=== PATIENT | female | born 1985 | race American Indian/Alaskan Native ===

== ENCOUNTER 2017-06-15 14:48 | Emergency (ER) | payer MEDICAID ==
[2017-06-15] MEDS ORDERED: NORCO 5/325 PO ONE ×2 (17:03→18:30)
[2017-06-15] MEDS ORDERED: FLEXERIL PO ONE (17:03)
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
[2017-06-15 18:47] LABS: Bilirubin,Urine NEG (Negative); Blood,Urine NEG (Negative); Ketones,Urine NEG (Negative); Leukocyte Esterase,Urine NEG (Negative); Mucus,Urine FEW /HPF; Nitrite,Urine NEG (Negative); Protein,Urine <15 mg/dL mg/dL (Negative); WBC,Urine < 1.0 /HPF (0.0-6.0)
[2017-06-15 19:04] VITALS: BP 130/70
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
== END 2017-06-15 19:03 | disposition home or self-care (01) ==
LOC: ED 14:48
DX: M54.5 Low back pain (principal); M25.561 Pain in right knee; V87.7XXA Person injured in collision between other specified motor vehicles (traffic), initial encounter; Y93.89 Activity, other specified; Y99.9 Unspecified external cause status; Y92.410 Unspecified street and highway as the place of occurrence of the external cause
CPT/HCPCS: 72100; 81001; 81025

== ENCOUNTER 2018-05-21 23:38 | Emergency (ER) | payer MEDICAID ==
[2018-05-22 00:27] LABS: Basophils % (Auto) 0.3 % (0.0-1.8); Eosinophils % (Auto) 0.5 % (0.0-4.3); Hematocrit 34.2 % (30.3-42.9); Hemoglobin 11.9 gm/dl (10.1-14.3); Lymphocytes # (Auto) 1.3 K/mm3 (1.2-5.4); Lymphocytes % (Auto) 29.2 % (13.4-35.0); Mean Corpuscular HGB Conc 35 % (30-34); Mean Corpuscular Hemoglobin 29 pg (28-32); Mean Corpuscular Volume 84 fl (79-97); Monocytes # (Auto) 0.4 K/mm3 (0.0-0.8); Monocytes % (Auto) 9.4 % (0.0-7.3); Platelet Count 199 K/mm3 (140-440); Red Blood Count 4.05 M/mm3 (3.65-5.03); Red Cell Distribution Width 14.8 % (13.2-15.2)
[2018-05-22 00:42] LABS: BUN/Creatinine Ratio 12; Blood Urea Nitrogen 7 mg/dL (7-17); Calcium 8.7 mg/dL (8.4-10.2); Hemolysis Index 5
[2018-05-22] MEDS ORDERED: ANTIVERT PO ONE (01:10)
--- NOTE | 2018-05-22 01:13 | Emergency Department Report ---
ED Dizziness HPI - General Chief Complaint: Headache Stated Complaint: WEAKNESS, DIZZINESS, NAUSEA & VOMITING Time Seen by Provider: 05/22/18 01:00 Source: patient Mode of arrival: Ambulatory Limitations: No Limitations - History of Present Illness Initial Comments: Patient is 32 years old female with no significant past medical history. Patient presented to the ER complaining of dizziness and spinning of the room. Patient stated that her symptoms is worse when she change her position. She said she never had any symptoms like this before. Patient denied any weakness, numbness or tingling sensation. No neck pain or fever. MD Complaint: dizziness -: Sudden Description: sense of movement, "room spinning" History of Same: No Severity: moderate Improves With: remaining still Associated Symptoms: denies other symptoms - Related Data Previous Rx's Medication Instructions Recorded Last Taken Type Cyclobenzaprine [Flexeril] 10 mg PO TID PRN #10 tablet 06/15/17 Unknown Rx methylPREDNISolone [Medrol] 4 mg PO DAILY #1 tab.ds.pk 06/15/17 Unknown Rx traMADol [Ultram] 50 mg PO Q6HR PRN #10 tablet 06/15/17 Unknown Rx Allergies Allergy/AdvReac Type Severity Reaction Status Date / Time No Known Allergies Allergy Verified 06/15/17 14:52 ED Review of Systems ROS: Stated complaint: WEAKNESS, DIZZINESS, NAUSEA & VOMITING Other details as noted in HPI Comment: All other systems reviewed and negative Constitutional: denies: chills, fever Respiratory: denies: cough, orthopnea, shortness of breath, SOB with exertion Gastrointestinal: denies: abdominal pain, nausea, vomiting, diarrhea Genitourinary: denies: urgency, dysuria, frequency, hematuria Skin: denies: rash Neurological: denies: headache, weakness ED Past Medical Hx - Past Medical History Previous Medical History?: No - Surgical History Past Surgical History?: Yes Additional Surgical History: Csection - Social History Smoking Status: Never Smoker - Medications Home Medications: Home Medications Medication Instructions Recorded Confirmed Last Taken Type Cyclobenzaprine [Flexeril] 10 mg PO TID PRN #10 tablet 06/15/17 Unknown Rx methylPREDNISolone [Medrol] 4 mg PO DAILY #1 tab.ds.pk 06/15/17 Unknown Rx traMADol [Ultram] 50 mg PO Q6HR PRN #10 tablet 06/15/17 Unknown Rx ED Physical Exam - General Limitations: No Limitations General appearance: alert, in no apparent distress - Head Head exam: Present: atraumatic, normocephalic, normal inspection - Eye Eye exam: Present: normal appearance, PERRL - ENT ENT exam: Present: normal exam, normal orophraynx, mucous membranes moist - Neck Neck exam: Present: normal inspection, full ROM. Absent: tenderness, meningismus, lymphadenopathy - Respiratory Respiratory exam: Present: normal lung sounds bilaterally - Cardiovascular Cardiovascular Exam: Present: regular rate, normal rhythm, normal heart sounds - GI/Abdominal GI/Abdominal exam: Present: soft, normal bowel sounds. Absent: distended, tenderness, guarding, rebound, rigid, organomegaly, mass, bruit, pulsatile mass , hernia - Extremities Exam Extremities exam: Present: normal inspection, full ROM, normal capillary refill - Back Exam Back exam: Present: normal inspection, full ROM. Absent: CVA tenderness (L) - Neurological Exam Neurological exam: Present: alert, oriented X3, CN II-XII intact, normal gait, reflexes normal - Skin Skin exam: Present: warm, intact, normal color ED Course Vital Signs 05/21/18 05/21/18 05/22/18 23:43 23:57 00:59 Temperature 98.2 F 98.2 F 98.2 F Pulse Rate 77 75 81 Respiratory 18 18 12 Rate Blood Pressure 107/70 107/70 Blood Pressure 125/79 [Left] O2 Sat by Pulse 97 98 99 Oximetry 05/22/18 01:00 Temperature Pulse Rate 80 Respiratory 17 Rate Blood Pressure 124/79 Blood Pressure [Left] O2 Sat by Pulse 100 Oximetry ED Medical Decision Making - Lab Data Result diagrams: 05/22/18 00:10 05/22/18 00:10 - EKG Data -: EKG Interpreted by Md EKG shows normal: sinus rhythm Rate: normal - EKG Data Interpretation: no acute changes - Radiology Data Radiology results: report reviewed Referring Physician: TONG PRADO Patient Name: JASIEL JEAN Date of : 1985 Sex: Female Report Date: 2018-05-22 Report Status: Finalized Findings [facility] [address] [place] [address] Cat Scan Report Signed Patient: JASIEL JEAN MR#: [id number] : 1985 Acct:[id number] Age/Sex: 32 / F ADM Date: 05/21/18 Loc: ED Attending Dr: Ordering Physician: TONG PRADO Date of Service: 05/22/18 Procedure(s): CT head/brain wo con Accession Number(s): [id number] cc: TONG PRADO FINAL REPORT EXAM: CT HEAD/BRAIN WO CON HISTORY: Acute Headache TECHNIQUE: Routine axial imaging was obtained of the brain without IV contrast. FINDINGS: The ventricular system is appropriate in size and is symmetric. There is no evidence of acute stroke or hemorrhage. There are no extra-axial fluid collections. The visualized sinuses are clear. The mastoid air cells are well pneumatized. IMPRESSION: No acute intracranial process. Transcribed By: RB Dictated By: SHIRLENE HAMILTON MD Electronically Authenticated By: SHIRLENE HAMILTON MD Signed Date/Time: 05/22/18135 DD/ 5 TD/TT: 05/22/18135 Critical care attestation.: If time is entered above; I have spent that time in minutes in the direct care of this critically ill patient, excluding procedure time. ED Disposition Clinical Impression: Dizziness Disposition: DC-01 TO HOME OR SELFCARE Is pt being admited?: No Condition: Stable Instructions: Vertigo (ED), Dizziness (ED) Referrals: PRIMARY CARE, [Referring] - 3-5 Days
[2018-05-22 01:39] LABS: Bilirubin,Urine NEG (Negative); Blood,Urine NEG (Negative); Color,Urine Yellow (Yellow); Hyaline Casts,Urine 1 /LPF; Mucus,Urine 2+ /HPF; Protein,Urine <15 mg/dL mg/dL (Negative)
--- NOTE | 2018-05-22 01:43 | Cat Scan Report ---
FINAL REPORT EXAM: CT HEAD/BRAIN WO CON HISTORY: Acute Headache TECHNIQUE: Routine axial imaging was obtained of the brain without IV contrast. FINDINGS: The ventricular system is appropriate in size and is symmetric. There is no evidence of acute stroke or hemorrhage. There are no extra-axial fluid collections. The visualized sinuses are clear. The mastoid air cells are well pneumatized. IMPRESSION: No acute intracranial process.
[2018-05-22 04:10] VITALS: BP 121/76
== END 2018-05-22 04:11 | disposition home or self-care (01) ==
LOC: ED 23:38
DX: R42 Dizziness and giddiness (principal)
CPT/HCPCS: 36415; 70450; 80048; 81001; 84484; 84703; 85025; 93005; 93010